=== PATIENT | male | born 1975 | race Caucasian/White ===

== ENCOUNTER → 2016-12-13 | Outpatient (CLI) | payer OTHER ==
--- NOTE | 2016-12-13 12:22 | XR ---
EXAMINATION TYPE: XR ankle complete LT DATE OF EXAM: 12/13/2016 12:14 PM COMPARISON: NONE HISTORY: 41 year-old male left ankle sprain after fall on ice this morning, anterior and lateral pain . TECHNIQUE: 3 views FINDINGS: There is anterior tibiotalar joint effusion with a anterior soft tissue swelling. Ankle mortise is co ngruent with preservation of the distal tibiofibular overlap. Talar dome is intact. Mild thickening a t the Achilles insertion with moderate sized plantar calcaneal spur. No acute fracture or dislocation . IMPRESSION: 1. Some anterior soft tissue swelling and underlying tibiotalar joint effusion. 2. No acute osseous abnormality seen. 3. Mild insertional Achilles tendinopathy. 4. Moderate-sized plantar calcaneal spur.
== END | disposition home or self-care (01) ==
LOC: RADXRMAIN 11:52
PROVIDERS: ATTEND Emergency Medicine
DX: S93.402A Sprain of unspecified ligament of left ankle, initial encounter (principal); M77.32 Calcaneal spur, left foot; M25.472 Effusion, left ankle; M67.874 Other specified disorders of tendon, left ankle and foot